=== PATIENT | male | born 1985 | race Caucasian/White ===

== ENCOUNTER 2016-08-28 09:01 | Emergency (ER) | payer OTHER ==
[2016-08-28 09:32] LABS: BASO # 0.1 K/uL (0.0-0.2); BASO % 0.9 % (0.0-2.0); EOS # 0.3 K/uL (0.0-0.7); EOS % 3.9 % (0.0-4.0); HEMATOCRIT 46.7 % (35.0-51.0); LYMPH # 1.7 K/uL (1.0-4.3); LYMPH % 21.8 % (20.0-40.0); MEAN CELL VOLUME 94.2 fL (80.0-94.0); MEAN CORPUSCULAR HEMOGLOBIN 31.9 pg (27.0-31.0); MEAN CORPUSCULAR HGB CONC 33.8 g/dL (33.0-37.0); MEAN PLATELET VOLUME 9.7 fL (7.2-11.7); MONO # 0.6 K/uL (0.0-0.8); MONO % 7.6 % (0.0-10.0); RED CELL DISTRIBUTION WIDTH 13.1 % (11.5-14.5); WHITE BLOOD COUNT 7.7 K/uL (4.8-10.8)
[2016-08-28 09:40] LABS: CHLORIDE 101 mmol/L (98-107); POTASSIUM 4.9 mmol/L (3.6-5.2); SODIUM 140 mmol/L (132-148)
[2016-08-28 09:42] LABS: CARBON DIOXIDE 26 mmol/L (22-30); GFR AFRICAN-AMERICAN > 60
[2016-08-28 09:43] LABS: ALB/GLOB RATIO 1.5 (1.0-2.1); ALKALINE PHOSPHATASE 63 U/L (38-126); ALT/SGPT 13 U/L (21-72); AST/SGOT 40 U/L (17-59); BILIRUBIN,TOTAL 1.1 mg/dL (0.2-1.3); BLOOD UREA NITROGEN 15 mg/dL (9-20); GLUCOSE,RANDOM 95 mg/dL (75-110); TOTAL PROTEIN 8.1 g/dL (6.3-8.3)
[2016-08-28 09:44] LABS: ALCOHOL SERUM < 10 mg/dl (0-10)
[2016-08-28 09:59] LABS: RBC URINE < 1 /hpf (0-3); URINE BILIRUBIN NEGATIVE (NEGATIVE); URINE BLOOD NEGATIVE (NEGATIVE); URINE COLOR Yellow (YELLOW); URINE GLUCOSE (UA) NORMAL (Normal); URINE KETONE NEGATIVE (NEGATIVE); URINE LEUKOCYTE ESTERASE NEG Leu/uL (Negative); URINE PROTEIN NEGATIVE (NEGATIVE); URINE UROBILINOGEN NORMAL mg/dL (0.2-1.0); WBC URINE 1 /hpf (0-5)
--- NOTE | 2016-08-28 10:28 | C.PDOC ---
History Of Present Illness 31 y/o male with history of seizures, brought to ED by family members with reported seizure at home. Family notes patient complained of feeling dizzy prior to arrival. Witnessed shaking, seizure-like activity in the bed by Dr. Tapia. Family members report patient has been noncompliant with Depakote. Family members departed ER before staff could obtain more history. Time Seen by Provider: 08/28/16 09:16 Chief Complaint (Nursing): Seizure History Per: Family History/Exam Limitations: no limitations Recent Seizure Activity Began: Just Before Arrival Number Of Seizures: One Length Of Seizures (Duration): Unknown Post-ictal Period: No Past Medical History Reviewed: Historical Data, Nursing Documentation, Vital Signs Vital Signs: Last Vital Signs Temp 97.2 F L 08/28/16 15:12 Pulse 92 H 08/28/16 15:12 Resp 20 08/28/16 15:12 BP 141/88 08/28/16 15:12 Pulse Ox 96 08/29/16 22:16 - Medical History PMH: Seizures Family History: States: Unknown Family Hx - Social History Hx Alcohol Use: No Hx Substance Use: Yes - Immunization History Hx Tetanus Toxoid Vaccination: No Hx Influenza Vaccination: No Hx Pneumococcal Vaccination: No Review Of Systems Except As Marked, All Systems Reviewed And Found Negative. Constitutional: Negative for: Fever, Chills Cardiovascular: Negative for: Chest Pain Respiratory: Negative for: Shortness of Breath Gastrointestinal: Negative for: Nausea, Vomiting Skin: Negative for: Rash Neurological: Positive for: Seizures. Negative for: Headache Physical Exam - Physical Exam Appears: Non-toxic, No Acute Distress, Other (post-ictal ) Skin: Warm, Dry Head: Atraumatic, Normacephalic Eye(s): bilateral: Normal Inspection, PERRL Oral Mucosa: Moist Chest: Symmetrical Cardiovascular: Rhythm Regular Respiratory: Normal Breath Sounds, No Rales, No Rhonchi, No Wheezing Gastrointestinal/Abdominal: Soft, No Tenderness Extremity: Normal ROM, Capillary Refill (< 2 sec.) Neurological/Psych: Oriented x3 Pain Response: No Response To Pain ED Course And Treatment - Laboratory Results Result Diagrams: 08/28/16 09:27 08/28/16 09:27 O2 Sat by Pulse Oximetry: 96 (RA) Pulse Ox Interpretation: Normal Medical Decision Making Medical Decision Making: Plan: * Labs, UDS, UA * Reassess Progress: Pt appears post-ictal, will reassess and obtain more detailed history. 11:13 - Patient was given 2 mg of Ativan in ED after seziure in ER, and is sleepy with mild response to painful stimuli. 300 pm pt arousable with painful stimuli. .sts he hasnt taken depakote in a week, he lost medications. 4 pm pt tlaking on phone. I had discussion with patient regarding pcp use and its dangers. pt expresses understanding. Disposition Counseled Patient/Family Regarding: Diagnosis, Need For Followup, Rx Given - Disposition Referrals: [facility] [Outside] [facility] [Outside] Disposition: HOME/ ROUTINE Disposition Time: 16:08 Condition: IMPROVED Additional Instructions: Take medications as prescribed. Follow up in clinic. Return to ER for nay worsening symptoms. Prescriptions: Divalproex [Depakote DR (*BID*)] 500 mg PO BID #20 ect Instructions: Epilepsy (ED) Forms: Gen Discharge Inst Lao Print Language: TURKISH - Clinical Impression Clinical Impression: PCP (phencyclidine) abuse, Seizure - PA / TRIAGE CLINICIAN / Resident Statement MD/DO has reviewed & agrees with the documentation as recorded. - Scribe Statement The provider has reviewed the documentation as recorded by the Spenceribjay banda All medical record entries made by the Bertrand were at my direction and personally dictated by me. I have reviewed the chart and agree that the record accurately reflects my personal performance of the history, physical exam, medical decision making, and the department course for this patient. I have also personally directed, reviewed, and agree with the discharge instructions and disposition.
[2016-08-28 15:13] VITALS: BP 141/88; PULSE 92; RESP 20; TEMP 97.2
[2016-08-28] MEDS ORDERED: Divalproex 500 mg ER Tab PO STA (15:22)
[2016-08-28] MEDS ORDERED: Divalproex 500 mg DR Tab PO ONE (15:30)
[2016-08-28 16:11] VITALS: O2SAT 96
== END 2016-08-28 17:09 | disposition home or self-care (01) ==
LOC: C.ER 09:01
DX: F16.10 Hallucinogen abuse, uncomplicated (principal); G40.909 Epilepsy, unspecified, not intractable, without status epilepticus
CPT/HCPCS: 80053; 80164; 81001; 82948; 83735; 85025; 99285; G0480

== ENCOUNTER 2016-09-12 17:54 | Observation (INO) | payer OTHER ==
[2016-09-12 18:08] VITALS: TEMP 98; O2SAT 95
[2016-09-12 18:49] LABS: BASO % 0.6 % (0.0-2.0); EOS # 0.2 K/uL (0.0-0.7); EOS % 1.9 % (0.0-4.0); HEMATOCRIT 44.6 % (35.0-51.0); LYMPH # 1.7 K/uL (1.0-4.3); LYMPH % 21.6 % (20.0-40.0); MEAN CELL VOLUME 93.7 fL (80.0-94.0); MEAN CORPUSCULAR HEMOGLOBIN 31.3 pg (27.0-31.0); MEAN CORPUSCULAR HGB CONC 33.4 g/dL (33.0-37.0); MEAN PLATELET VOLUME 9.1 fL (7.2-11.7); MONO # 0.7 K/uL (0.0-0.8); MONO % 8.1 % (0.0-10.0); NRBC % 0.1 % (0.0-2.0); RED CELL DISTRIBUTION WIDTH 13.7 % (11.5-14.5)
--- NOTE | 2016-09-12 18:49 | C.PDOC ---
History Of Present Illness 31 y/o M c PMHx seizure disorder noncompliant with Depakote p/w seizure. Arrived to ER drowsy, then became more alert while in stretcher before having R arm tremor and becoming drowsy again. Abrasion noted to L cheek. Further ROS unobtainable due to clinical condition. Time Seen by Provider: 09/12/16 18:33 Chief Complaint (Nursing): Altered Mental Status Past Medical History Vital Signs: Last Vital Signs Temp 98.0 F 09/12/16 18:07 Pulse 86 09/12/16 22:37 Resp 16 09/12/16 22:37 BP 109/61 09/12/16 22:37 Pulse Ox 95 09/12/16 23:43 - Medical History PMH: Seizures Family History: States: Unknown Family Hx - Social History Hx Alcohol Use: No Hx Substance Use: Yes - Immunization History Hx Tetanus Toxoid Vaccination: No Hx Influenza Vaccination: No Hx Pneumococcal Vaccination: No Review Of Systems Review Of Systems: ROS cannot be obtained secondary to pt's inabilty to answer questions. Physical Exam - Physical Exam Additional Physical Exam Comments: Constitutional: No acute distress. Head: Abrasion to L cheek. Eyes: PERRL. ENT: No tongue laceration. Moist mucous membranes. Neck: Supple. Cardiovascular: Regular rate. Radial pulse 2+ bilaterally. Chest: No tenderness. Respiratory: Clear to auscultation bilaterally. GI: Soft. Nontender. Nondistended. Back: No CVA tenderness. Musculoskeletal: R arm tonic-clonic movements. Skin: No rash. Neurologic: Alert, no focal deficit. ED Course And Treatment - Laboratory Results Result Diagrams: 09/12/16 18:46 09/12/16 18:46 O2 Sat by Pulse Oximetry: 95 Medical Decision Making Medical Decision Making: CT Head EXAM: CT Head Without Intravenous Contrast CLINICAL HISTORY: 31 years old, male; Injury or trauma; Fall; Initial encounter; Concussion / head injury; Consciousness not specified; Additional info: Seizure, fall, head injury TECHNIQUE: Axial computed tomography images of the head/brain without intravenous contrast. This CT exam was performed using one or more of the following dose reduction techniques: automated exposure control, adjustment of the mA and/or kV according to patient size, and/or use of iterative reconstruction technique. COMPARISON: No relevant prior studies available. FINDINGS: Brain: Unremarkable. No hemorrhage. No significant white matter disease. No edema. Ventricles: Unremarkable. No ventriculomegaly. Bones/joints: Unremarkable. No acute fracture. Soft tissues: Unremarkable. Sinuses: Unremarkable as visualized. No acute sinusitis. Mastoid air cells: Unremarkable as visualized. No mastoid effusion. IMPRESSION: Normal head/brain CT. CT Orbits EXAM: CT Orbits Without Intravenous Contrast CLINICAL HISTORY: 31 years old, male; Injury or trauma; Fall; Initial encounter; Concussion /head injury; Loss of consciousness not known; Additional info: Seizure, fall, head injury TECHNIQUE: Axial computed tomography images of the orbits without intravenous contrast. This CT exam was performed using one or more of the following dose reduction techniques: automated exposure control, adjustment of the mA and/or kV according to patient size, and/or use of iterative reconstruction technique. Coronal and sagittal reformatted images were created and reviewed. COMPARISON: No relevant prior studies available. FINDINGS: Orbits: Unremarkable. Sinuses: Unremarkable. No air-fluid levels. Bones/joints: No acute fracture. Soft tissues: Unremarkable. IMPRESSION: Normal orbits CT. CT Cervical Spine EXAM: CT Cervical Spine Without Intravenous Contrast CLINICAL HISTORY: 31 years old, male; Injury or trauma; Fall; Initial encounter; Concussion /head injury; Additional info: Seizure, fall, head injury TECHNIQUE: Axial computed tomography images of the cervical spine without intravenous contrast. This CT exam was performed using one or more of the following dose reduction techniques : automated exposure control, adjustment of the mA and/or kV according to patient size, and/ or use of iterative reconstruction technique. Coronal and sagittal reformatted images were created and reviewed. COMPARISON: No relevant prior studies available. FINDINGS: Vertebrae: There is straightening of the cervical lordosis suggestive of muscle spasm. No acute fracture. Discs/spinal canal/neural foramina: No acute findings. No spinal canal stenosis. Soft tissues: Unremarkable. Lung apices: Unremarkable as visualized. IMPRESSION: No fracture or spondylolisthesis. Straightening of cervical lordosis suggestive of muscle spasm CXR HISTORY: seizure COMPARISON: 07/04/16 FINDINGS: LUNGS: No active pulmonary disease. PLEURA: No significant pleural effusion identified, no pneumothorax apparent. CARDIOVASCULAR: Normal. OSSEOUS STRUCTURES: No significant abnormalities. VISUALIZED UPPER ABDOMEN: Normal. OTHER FINDINGS: None: IMPRESSION: No active disease. ED OBSERVATION Discharge: Yes Date of observation admission: 09/12/16 Time of observation admission: 19:00 - Observation admission statement Patient is being placed in observation because:: seizure, post ictal - Progress Note Progress Note: 09/12/16 23:49 Patient observed in ER for 6 hours, no distress, stable. Patient awake, alert, talking on cell phone. Will discharge. Counseled on PCP use. Encouraged to f/u with primary care for chronic seizure disorder. Disposition - Disposition Disposition: HOME/ ROUTINE Disposition Time: 19:00 Condition: STABLE Instructions: Epilepsy (ED) - Clinical Impression Clinical Impression: Seizure, PCP (phencyclidine) abuse
[2016-09-12 19:05] LABS: CHLORIDE 100 mmol/L (98-107); SODIUM 141 mmol/L (132-148)
[2016-09-12 19:06] LABS: POTASSIUM 3.3 mmol/L (3.6-5.2)
[2016-09-12 19:07] LABS: GFR AFRICAN-AMERICAN > 60
[2016-09-12 19:08] LABS: ALB/GLOB RATIO 1.5 (1.0-2.1); ALKALINE PHOSPHATASE 53 U/L (38-126); ALT/SGPT 31 U/L (21-72); AST/SGOT 101 U/L (17-59); BILIRUBIN,TOTAL 0.3 mg/dL (0.2-1.3); BLOOD UREA NITROGEN 13 mg/dL (9-20); CALCIUM 8.6 mg/dl (8.6-10.4); CARBON DIOXIDE 30 mmol/L (22-30); GLUCOSE,RANDOM 105 mg/dL (75-110); PHOSPHOROUS 3.7 mg/dL (2.5-4.5); TOTAL PROTEIN 7.2 g/dL (6.3-8.3)
[2016-09-12 19:09] LABS: ALCOHOL SERUM < 10 mg/dl (0-10); MAGNESIUM 2.3 mg/dL (1.6-2.3)
[2016-09-12 21:12] VITALS: RESP 16
--- NOTE | 2016-09-12 22:15 | RAD ---
HISTORY: seizure COMPARISON: 07/04/16 FINDINGS: LUNGS: No active pulmonary disease. PLEURA: No significant pleural effusion identified, no pneumothorax apparent. CARDIOVASCULAR: Normal. OSSEOUS STRUCTURES: No significant abnormalities. VISUALIZED UPPER ABDOMEN: Normal. OTHER FINDINGS: None. IMPRESSION: No active disease.
[2016-09-12 22:38] VITALS: BP 109/61; PULSE 86
[2016-09-12 23:31] LABS: RBC URINE < 1 /hpf (0-3); URINE BACTERIA RARE (<OCC); URINE BILIRUBIN NEGATIVE (NEGATIVE); URINE BLOOD NEGATIVE (NEGATIVE); URINE COLOR Yellow (YELLOW); URINE GLUCOSE (UA) NORMAL (Normal); URINE KETONE NEGATIVE (NEGATIVE); URINE LEUKOCYTE ESTERASE NEG Leu/uL (Negative); URINE PROTEIN NEGATIVE (NEGATIVE); URINE UROBILINOGEN NORMAL mg/dL (0.2-1.0); WBC URINE 3 /hpf (0-5)
--- NOTE | 2016-09-13 09:15 | CT ---
PROCEDURE: CT HEAD WITHOUT CONTRAST. HISTORY: seizure, fall, head injury COMPARISON: Correlation made with concurrent CT scan orbits. TECHNIQUE: Axial computed tomography images were obtained through the head/brain without intravenous contrast. Radiation dose: Total exam DLP = 939.91mGy-cm. This CT exam was performed using one or more of the following dose reduction techniques: Automated exposure control, adjustment of the mA and/or kV according to patient size, and/or use of iterative reconstruction technique. FINDINGS: HEMORRHAGE: No acute parenchymal, subarachnoid or extra-axial hemorrhage. BRAIN: Localized prominent subarachnoid space right anterior middle cranial fossa could repeat secondary to localized cortical atrophy and/or localized of encephalomalacia right anterior temporal tip VENTRICLES: Unremarkable. No hydrocephalus. Cavum septum pellucidum and vergae CALVARIUM: Unremarkable. PARANASAL SINUSES: Unremarkable as visualized. No significant inflammatory changes. MASTOID AIR CELLS: Unremarkable as visualized. No inflammatory changes. OTHER FINDINGS: None. IMPRESSION: No hemorrhage. Localized prominent subarachnoid space right anterior middle cranial fossa could repeat secondary to localized cortical atrophy and/or localized of encephalomalacia right anterior temporal tip
--- NOTE | 2016-09-13 09:19 | CT ---
PROCEDURE: CT ORBITS WITHOUT CONTRAST. HISTORY: seizure, fall, head injury COMPARISON: Concurrent CT the brain TECHNIQUE: Axial CT images of the orbits were obtained. Coronal and sagittal reformats were generated. Radiation dose: Total exam DLP = 805.63mGy-cm. This CT exam was performed using one or more of the following dose reduction techniques: Automated exposure control, adjustment of the mA and/or kV according to patient size, and/or use of iterative reconstruction technique. FINDINGS: RIGHT ORBIT: RIGHT BONY ORBIT: Normal. RIGHT INTRAORBITAL STRUCTURES: Globe: Normal. Extraocular muscles: Normal. Post septal space: Normal. Optic Nerve: Normal. Lacrimal Apparatus: Normal. RIGHT PRESEPTAL SOFT TISSUES: Normal. LEFT ORBIT: LEFT BONY ORBIT: Normal. LEFT INTRAORBITAL STRUCTURES: Globe: Normal. Extraocular muscles: Normal. Post septal space: Normal Optic Nerve: Normal. . Lacrimal Apparatus: Normal. LEFT PRESEPTAL SOFT TISSUES: Normal. OTHER: None. IMPRESSION: Unremarkable non contrast enhanced CT of the orbits.
--- NOTE | 2016-09-13 11:18 | CT ---
PROCEDURE: CT Cervical Spine without contrast HISTORY: <seizure, fall, head injury> COMPARISON: None available. TECHNIQUE: Axial computed tomography images were obtained of the cervical spine without the use of intravenous contrast. Coronal and sagittal reformatted images were created and reviewed. Radiation dose: 557.54 mGy-cm. This CT exam was performed using one or more of the following dose reduction techniques: Automated exposure control, adjustment of the mA and/or kV according to patient size, and/or use of iterative reconstruction technique. FINDINGS: VERTEBRAE: No fracture. . No destructive bony lesion. Straightening of the normal cervical lordosis could be due to patient positioning gantry however underlying element of muscle spasm may contribute. DISCS/SPINAL CANAL/NEURAL FORAMINA: No significant central canal or neural foraminal stenosis. Discs heights are grossly preserved. PARASPINAL SOFT TISSUES: Unremarkable. OTHER FINDINGS: None. IMPRESSION: No acute fractures Straightening of the normal cervical lordosis could be due to patient positioning gantry however underlying element of muscle spasm may contribute.
--- NOTE | 2016-09-14 18:06 | CARD ---
APPROVED REPORT EKG Measurement Heart [id number] <Conclusion> Normal sinus rhythm Normal ECG
== END 2016-09-12 23:49 | disposition home or self-care (01) ==
LOC: C.ER 17:54 → C.9OBSV 19:00
PROVIDERS: ADMIT Student in an Organized Health Care Education/Training Program; ATTEND Student in an Organized Health Care Education/Training Program
DX: G40.909 Epilepsy, unspecified, not intractable, without status epilepticus (principal); F16.10 Hallucinogen abuse, uncomplicated; Z68.20 Body mass index [BMI] 20.0-20.9, adult
CPT/HCPCS: 70450; 70480; 71010; 72125; 80053; 80164; 81001; 83735; 84100; 85025; 93005; 96374; 99285; G0378; G0480; J2060

== ENCOUNTER 2016-09-15 17:44 | Observation (INO) | payer OTHER ==
[2016-09-15 18:19] VITALS: TEMP 97.7; BMI 23.6
--- NOTE | 2016-09-15 20:28 | C.PDOC ---
History Of Present Illness 31 y/o male presents to ED, initially ambulatory, then seemingly faking seizure like activity, during which he is awake. Patient moving voluntary. Patient seen in this ER for similar presentation 3 days ago, with head CT, neck CT, and lab testing significant only for (+) PCP. Denies any other complaints. Time Seen by Provider: 09/15/16 19:35 Chief Complaint (Nursing): Substance Abuse History Per: Patient History/Exam Limitations: no limitations Suicide/Self Injury Attempted (Context): None Associated Symptoms: denies: Suicidal Thoughts, Suicidal Plan Recent travel outside of the [place]: No Past Medical History Reviewed: Historical Data, Nursing Documentation, Vital Signs Vital Signs: Last Vital Signs Temp 97.7 F 09/15/16 18:19 Pulse 73 09/15/16 22:32 Resp 18 09/15/16 22:32 BP 131/74 09/15/16 22:32 Pulse Ox 98 09/16/16 00:31 - Medical History PMH: Seizures Family History: States: Unknown Family Hx - Social History Hx Alcohol Use: No Hx Substance Use: Yes - Immunization History Hx Tetanus Toxoid Vaccination: No Hx Influenza Vaccination: No Hx Pneumococcal Vaccination: No Review Of Systems Except As Marked, All Systems Reviewed And Found Negative. Constitutional: Negative for: Fever, Chills Cardiovascular: Negative for: Chest Pain Respiratory: Negative for: Shortness of Breath Gastrointestinal: Negative for: Nausea, Vomiting Skin: Negative for: Rash Neurological: Negative for: Headache, Dizziness Physical Exam - Physical Exam Appears: Non-toxic, No Acute Distress Skin: Warm, Dry Head: Atraumatic, Normacephalic Chest: Symmetrical Cardiovascular: Rhythm Regular Respiratory: Normal Breath Sounds, No Rales, No Rhonchi, No Wheezing Gastrointestinal/Abdominal: Soft, No Tenderness Back: Normal Inspection Extremity: Normal ROM, Capillary Refill (< 2 sec. ) Neurological/Psych: Oriented x3, Normal Speech ED Course And Treatment - Laboratory Results Result Diagrams: 09/15/16 20:22 09/15/16 20:22 Lab Interpretation: Abnormal (+ tox PCP, THC) ECG: Interpreted By Me ECG Rhythm: Sinus Rhythm ECG Interpretation: Normal Rate From EC O2 Sat by Pulse Oximetry: 98 (RA) Pulse Ox Interpretation: Normal Progress Note: Labs, Ativan ordered. Reevaluation Time: 00:31 Reassessment Condition: Improved Medical Decision Making Medical Decision Making: chronoic pcp/marijuana abuse 0030: pending sobriety in AM Disposition Doctor Will See Patient In The: Office - Disposition Disposition Time: 01:00 Condition: GOOD - Clinical Impression Clinical Impression: PCP (phencyclidine) abuse, Marijuana abuse - Scribe Statement The provider has reviewed the documentation as recorded by the Spenceribe Isaac Anderson Provider Scribe Attestation: All medical record entries made by the Spenceribjay were at my direction and personally dictated by me. I have reviewed the chart and agree that the record accurately reflects my personal performance of the history, physical exam, medical decision making, and the department course for this patient. I have also personally directed, reviewed, and agree with the discharge instructions and disposition. Physician Patient Turnover Patient Signed Over To: Zia Recinos Handoff Comments: dispo in AM when sober
[2016-09-15 20:35] LABS: BASO % 0.5 % (0.0-2.0); EOS # 0.2 K/uL (0.0-0.7); EOS % 2.1 % (0.0-4.0); HEMATOCRIT 46.3 % (35.0-51.0); LYMPH # 1.9 K/uL (1.0-4.3); LYMPH % 21.9 % (20.0-40.0); MEAN CELL VOLUME 95.6 fL (80.0-94.0); MEAN CORPUSCULAR HEMOGLOBIN 31.7 pg (27.0-31.0); MEAN CORPUSCULAR HGB CONC 33.1 g/dL (33.0-37.0); MEAN PLATELET VOLUME 9.7 fL (7.2-11.7); MONO # 0.7 K/uL (0.0-0.8); MONO % 7.8 % (0.0-10.0); RED CELL DISTRIBUTION WIDTH 13.1 % (11.5-14.5); WHITE BLOOD COUNT 8.7 K/uL (4.8-10.8)
[2016-09-15 20:42] LABS: CHLORIDE 99 mmol/L (98-107)
[2016-09-15 20:43] LABS: POTASSIUM 4.3 mmol/L (3.6-5.2); SODIUM 140 mmol/L (132-148)
[2016-09-15 20:46] LABS: ALB/GLOB RATIO 1.4 (1.0-2.1); ALKALINE PHOSPHATASE 64 U/L (38-126); ALT/SGPT 106 U/L (21-72); AST/SGOT 465 U/L (17-59); BILIRUBIN,TOTAL 0.3 mg/dL (0.2-1.3); BLOOD UREA NITROGEN 6 mg/dL (9-20); CALCIUM 9.1 mg/dl (8.6-10.4); CARBON DIOXIDE 30 mmol/L (22-30); GFR AFRICAN-AMERICAN > 60; GLUCOSE,RANDOM 81 mg/dL (75-110); TOTAL PROTEIN 7.3 g/dL (6.3-8.3)
[2016-09-15 20:47] LABS: ALCOHOL SERUM < 10 mg/dl (0-10)
[2016-09-15 20:48] LABS: URINE BACTERIA RARE (<OCC); URINE BILIRUBIN NEGATIVE (NEGATIVE); URINE BLOOD NEGATIVE (NEGATIVE); URINE COLOR Yellow (YELLOW); URINE GLUCOSE (UA) NORMAL (Normal); URINE KETONE NEGATIVE (NEGATIVE); URINE LEUKOCYTE ESTERASE NEG Leu/uL (Negative); URINE PROTEIN NEGATIVE (NEGATIVE); URINE UROBILINOGEN NORMAL mg/dL (0.2-1.0); WBC URINE 1 /hpf (0-5)
[2016-09-16 00:31] VITALS: O2SAT 98
[2016-09-16 03:37] VITALS: BP 127/67; RESP 20
[2016-09-16 04:29] VITALS: PULSE 83
== END 2016-09-16 04:56 | disposition home or self-care (01) ==
LOC: C.ER 17:44 → C.9OBSV 21:31
PROVIDERS: ADMIT Internal Medicine; ATTEND Internal Medicine
DX: F16.10 Hallucinogen abuse, uncomplicated (principal); F12.10 Cannabis abuse, uncomplicated
CPT/HCPCS: 80053; 81001; 82948; 85025; 96372; G0378; G0480; J2060

== ENCOUNTER 2016-09-30 21:53 | Emergency (ER) | payer SELFPAY ==
[2016-09-30 21:54] VITALS: BMI 23.6
--- NOTE | 2016-09-30 22:20 | C.PDOC ---
History Of Present Illness The patient, a 31 y/o male, presents to the ED for evaluation of right anterior chest wall pain which began earlier today. Patient also notes nonproductive cough and states his pain is exacerbated by deep inspiration. Patient denies fever, chills, nausea, vomiting, extremity numbness/weakness. Chief Complaint (Nursing): Chest Pain History Per: Patient History/Exam Limitations: no limitations Onset/Duration Of Symptoms: Hrs Current Symptoms Are (Timing): Still Present Quality: "Pain" Associated Symptoms: denies: Nausea, Dyspnea Exacerbating Factors: Deep Breathing Additional History Per: Patient Past Medical History Reviewed: Historical Data, Nursing Documentation, Vital Signs Vital Signs: Last Vital Signs Temp 97.8 F 09/30/16 22:11 Pulse 84 09/30/16 22:11 Resp 20 09/30/16 22:11 BP 126/74 09/30/16 22:11 Pulse Ox 98 09/30/16 22:55 - Medical History PMH: Seizures Surgical History: No Surg Hx Family History: States: Unknown Family Hx - Social History Hx Alcohol Use: No Hx Substance Use: Yes - Immunization History Hx Tetanus Toxoid Vaccination: No Hx Influenza Vaccination: No Hx Pneumococcal Vaccination: No Review Of Systems Except As Marked, All Systems Reviewed And Found Negative. Constitutional: Negative for: Fever, Chills Cardiovascular: Positive for: Chest Pain (right, anterior wall ) Respiratory: Positive for: Cough. Negative for: Sputum Gastrointestinal: Negative for: Nausea, Vomiting Physical Exam - Physical Exam Appears: Non-toxic, No Acute Distress Skin: Normal Color, Warm, Dry Head: Atraumatic, Normacephalic Eye(s): bilateral: Normal Inspection Oral Mucosa: Moist Neck: Supple Chest: Symmetrical, No Deformity, Tenderness (to parasternal area on palpation ) Cardiovascular: Rhythm Regular, No Murmur Respiratory: Normal Breath Sounds, No Rales, No Rhonchi, No Wheezing Gastrointestinal/Abdominal: Soft, No Tenderness, No Guarding, No Rebound Back: Normal Inspection, No Vertebral Tenderness, No Paraspinal Tenderness Extremity: Normal ROM, Capillary Refill (less than 2 seconds ) Neurological/Psych: Oriented x3, Normal Speech, Normal Cognition Gait: Steady ED Course And Treatment - Laboratory Results Result Diagrams: 09/30/16 22:29 09/30/16 22:29 ECG: Interpreted By Me, Viewed By Me ECG Rhythm: Sinus Rhythm ECG Interpretation: Normal, No Acute Changes Interpretation Of ECG: NSR, normal tracings Rate From EC O2 Sat by Pulse Oximetry: 98 (on RA) Pulse Ox Interpretation: Normal - Radiology CXR: Interpreted by Me, Viewed By Me CXR Interpretation: Yes: No Acute Disease. No: Infiltrates, Cardiomegaly, Pnemothorax Progress Note: labs, EKG, CXR ordered and reviewed. Patient received Toradol IV. Disposition Counseled Patient/Family Regarding: Diagnosis - Disposition Referrals: [facility] [Outside] Disposition: HOME/ ROUTINE Disposition Time: 23:02 Condition: STABLE Prescriptions: Divalproex [Depakote] 250 mg PO BID #30 tcp Naproxen [Naprosyn Tab] 375 mg PO TIDPC #20 tab Instructions: Chest Wall Pain (ED), Epilepsy (DC) - POA Present On Arrival: None - Clinical Impression Clinical Impression: Chest wall pain, Seizure disorder - Scribe Statement The provider has reviewed the documentation as recorded by the Scribe (Yudith Levy) Provider Attestation: All medical record entries made by the Scribe were at my direction and personally dictated by me. I have reviewed the chart and agree that the record accurately reflects my personal performance of the history, physical exam, medical decision making, and the department course for this patient. I have also personally directed, reviewed, and agree with the discharge instructions and disposition.
[2016-09-30 22:36] LABS: BASO # 0.1 K/uL (0.0-0.2); BASO % 0.8 % (0.0-2.0); EOS # 0.1 K/uL (0.0-0.7); EOS % 1.4 % (0.0-4.0); HEMATOCRIT 44.9 % (35.0-51.0); LYMPH # 1.9 K/uL (1.0-4.3); LYMPH % 27.5 % (20.0-40.0); MEAN CELL VOLUME 94.1 fL (80.0-94.0); MEAN CORPUSCULAR HEMOGLOBIN 31.7 pg (27.0-31.0); MEAN CORPUSCULAR HGB CONC 33.7 g/dL (33.0-37.0); MONO # 0.5 K/uL (0.0-0.8); MONO % 7.5 % (0.0-10.0); RED CELL DISTRIBUTION WIDTH 13.1 % (11.5-14.5); WHITE BLOOD COUNT 6.8 K/uL (4.8-10.8)
[2016-09-30 22:42] LABS: CHLORIDE 96 mmol/L (98-107); POTASSIUM 3.8 mmol/L (3.6-5.2); SODIUM 137 mmol/L (132-148)
[2016-09-30 22:45] LABS: ALB/GLOB RATIO 1.4 (1.0-2.1); ALKALINE PHOSPHATASE 52 U/L (38-126); ALT/SGPT 27 U/L (21-72); AST/SGOT 25 U/L (17-59); BILIRUBIN,TOTAL 0.7 mg/dL (0.2-1.3); BLOOD UREA NITROGEN 12 mg/dL (9-20); CARBON DIOXIDE 31 mmol/L (22-30); GFR AFRICAN-AMERICAN > 60; GLUCOSE,RANDOM 103 mg/dL (75-110); TOTAL PROTEIN 7.2 g/dL (6.3-8.3)
[2016-09-30 22:46] LABS: CALCIUM 9.1 mg/dl (8.6-10.4)
[2016-09-30] MEDS ORDERED: Divalproex 500 mg DR Tab PO ONE (23:08)
[2016-09-30 23:14] VITALS: BP 116/75; PULSE 86; RESP 18; TEMP 98.2; O2SAT 99
--- NOTE | 2016-10-01 10:19 | RAD ---
HISTORY: chest pain COMPARISON: Chest x-ray performed 09/12/16 TECHNIQUE: Chest PA and lateral FINDINGS: LUNGS: Interval development of small right pleural effusion and atelectasis. No definite pneumothorax. Please note that chest x-ray has limited sensitivity for the detection of pulmonary masses. CARDIOVASCULAR: The cardiomediastinal silhouette appears within normal limits of size. OSSEOUS STRUCTURES: No acute osseous abnormality identified. VISUALIZED UPPER ABDOMEN: Unremarkable. OTHER FINDINGS: None. IMPRESSION: Interval development of small right pleural effusion and atelectasis.
--- NOTE | 2016-10-01 16:36 | CARD ---
APPROVED REPORT EKG Measurement Heart [id number] OR 150P74 [id number] <Conclusion> Normal sinus rhythm Normal ECG
--- NOTE | 2016-11-10 12:33 | CARD ---
APPROVED REPORT EKG Measurement Heart [id number] [place] 150P67 [id number] <Conclusion> Normal sinus rhythm Normal ECG
== END 2016-09-30 23:14 | disposition home or self-care (01) ==
LOC: C.ER 21:53
DX: R07.89 Other chest pain (principal); G40.909 Epilepsy, unspecified, not intractable, without status epilepticus
CPT/HCPCS: 71020; 80053; 80164; 82948; 84484; 85025; 85378; 93005; 96374; 99284; J1885

== ENCOUNTER 2017-03-13 07:56 | Emergency (ER) | payer OTHER ==
[2017-03-13 07:56] VITALS: BMI 23.6
[2017-03-13 08:03] VITALS: RESP 16
--- NOTE | 2017-03-13 08:27 | C.PDOC ---
History Of Present Illness 31 year old male presents to ED with complaints of lower back pain s/p slip and fall in the shower few hours prior to arrival. Notes that pain is worse with movement. Denies taking any OTC medications for pain. Denies head trauma, bowel or bladder incontinence/retention, change in sensation, abdominal pain, nausea, vomiting, or any other associated symptoms at this time. Time Seen by Provider: 03/13/17 08:11 Chief Complaint (Nursing): Back Pain History Per: Patient History/Exam Limitations: no limitations Onset/Duration Of Symptoms: Hrs Current Symptoms Are (Timing): Still Present Quality Of Discomfort: "Pain" Previous Symptoms: Prior Injury Associated Symptoms: denies: Incontinence, New Weakness, New Numbness Exacerbating Factor(s): Movement Recent travel outside of the [place]: No Additional History Per: Patient Past Medical History Reviewed: Historical Data, Nursing Documentation, Vital Signs Vital Signs: Last Vital Signs Temp 98.2 F 03/13/17 09:46 Pulse 79 03/13/17 09:46 Resp 16 03/13/17 09:46 BP 119/79 03/13/17 09:46 Pulse Ox 98 03/13/17 09:46 - Medical History PMH: Seizures Family History: States: Unknown Family Hx - Social History Hx Alcohol Use: Yes Hx Substance Use: Yes - Immunization History Hx Tetanus Toxoid Vaccination: No Hx Influenza Vaccination: No Hx Pneumococcal Vaccination: No Review Of Systems Except As Marked, All Systems Reviewed And Found Negative. Constitutional: Negative for: Fever, Chills Cardiovascular: Negative for: Chest Pain, Palpitations Respiratory: Negative for: Shortness of Breath Gastrointestinal: Negative for: Nausea, Vomiting, Abdominal Pain Genitourinary: Negative for: Dysuria, Frequency, Incontinence, Hematuria Musculoskeletal: Positive for: Back Pain. Negative for: Neck Pain Neurological: Negative for: Weakness, Numbness, Headache Physical Exam - Physical Exam Appears: Non-toxic, No Acute Distress Skin: Normal Color, Warm, Dry Head: Atraumatic, Normacephalic Eye(s): bilateral: Normal Inspection Nose: Normal Oral Mucosa: Moist Neck: Normal ROM, Supple Chest: Symmetrical Cardiovascular: Rhythm Regular, No Murmur Respiratory: Normal Breath Sounds, No Rales, No Rhonchi, No Wheezing Gastrointestinal/Abdominal: Soft, No Tenderness Back: No Vertebral Tenderness, Paraspinal Tenderness (left paralumbar) Extremity: Normal ROM Neurological/Psych: Oriented x3, Normal Speech Gait: Steady ED Course And Treatment O2 Sat by Pulse Oximetry: 95 (RA) Pulse Ox Interpretation: Normal - Other Rad LS spine x-ray X-Ray: Interpreted by Me, Viewed By Me Interpretation: No acute fracture or dislocation. Progress Note: LS spine x-ray ordered and reviewed. Patient was treated with Toradol. On re-eval, patient is resting comfortably, reports improvement of back pain, no fever, no bony tenderness, no numbness, no weakness, or abdominal pain. Patient is ambulatory in the emergency department with no signs of discomfort. Patient was advised to follow up with their physician in 1-2 days. Disposition - Disposition Disposition: HOME/ ROUTINE Disposition Time: 09:25 Condition: STABLE Additional Instructions: Follow up with your primary medical doctor or clinic in 2-5 days for further evaluation. Take medications as prescribed. Return to the emergency department at any time if symptoms persist or worsen. Prescriptions: Naproxen [Naprosyn] 1 tab PO BID PRN #25 tab PRN Reason: Pain Instructions: Acute Low Back Pain (ED) Forms: [employer] (Frisian) - Clinical Impression Clinical Impression: Low back pain - PA / [employer] / Resident Statement MD/DO has reviewed & agrees with the documentation as recorded. - Scribe Statement The provider has reviewed the documentation as recorded by the Spenceribjay Levy All medical record entries made by the Spenceribjay were at my direction and personally dictated by me. I have reviewed the chart and agree that the record accurately reflects my personal performance of the history, physical exam, medical decision making, and the department course for this patient. I have also personally directed, reviewed, and agree with the discharge instructions and disposition.
[2017-03-13 09:47] VITALS: BP 119/79; PULSE 79; TEMP 98.2
--- NOTE | 2017-03-13 11:00 | RAD ---
PROCEDURE: Radiographs of the Lumbar Spine. HISTORY: trauma COMPARISON: No prior. FINDINGS: BONES: No acute compression fractures no retropulsed fragments. Minor chronic anterior stature loss of the L3, L1 and T11 segments. . There is slight posterior subluxation of L1 over L2, L2 over L3 and L3 over L4. DISC SPACES: Multilevel mild posterior disc space narrowing most notably affecting the L5-S1 level. OTHER FINDINGS: None. IMPRESSION: No acute fractures. Minor chronic appearing anterior stature loss of the L3, L1 and T11 segments. Slight posterior subluxation of several segments and minor multilevel degenerative spondylosis as detailed above
[2017-03-13 14:13] VITALS: O2SAT 95
== END 2017-03-13 10:10 | disposition home or self-care (01) ==
LOC: C.ER 07:56
DX: M54.5 Low back pain (principal)
CPT/HCPCS: 72100; 96372; 99284; J1885